=== PATIENT | female | born 1975 | race Caucasian/White ===

== ENCOUNTER → 2017-09-29 | Outpatient (CLI) | payer OTHER ==
[2017-09-29] MEDS: IOHEXOL 300 MG/ML 100ML VIAL. IV ×2 (09:38)
== END | disposition home or self-care (01) ==
LOC: CT 08:40
DX: J98.11 Atelectasis (principal)
CPT/HCPCS: 71275; Q9967

== ENCOUNTER → 2017-10-08 | Outpatient (CLI) | payer OTHER | END | disposition home or self-care (01) | LOC: NM 07:53 | DX: K30 Functional dyspepsia (principal); R11.0 Nausea | CPT/HCPCS: 78264; A9541 ==

== ENCOUNTER → 2018-05-30 | Outpatient (CLI) | payer OTHER ==
[2017-08-20 13:28] VITALS: BP 129/90
[~2018-05-30] MED LIST: AZEL137S3 NS; BREO ELLIPTA 21 EACH IH; CETI10TA22 PO; CLON1TAB4 PO; FLUT12AE IH; GLUC100018 PO; LAMO100T5 PO; LEVO137T2 PO; LEVO5TAB29 PO; MONT10TA9 PO; MULT1TAB52 PO; OMEP20CA9 PO; OXYC-323 PO; POLY17PO29 PO; PROAIR HFA8.5 GM INH; TOPI50TA38 PO; VORT20TA PO; XOPENEX HFA15 GM IH
--- NOTE | 2018-05-30 12:50 | RAD ---
HEPATOBILIARY SCAN WITH EJECTION FRACTION 05/30/2018 12:46 PM History: abd pain x 2 weeks
5.5mci 99mTc Choletec liquid meal for EF Procedure: Serial static images are obtained of the liver and biliary system in the frontal projection following IV administration of 5.5 mCi of Technetium 99m Choletec. After filling of the gallbladder, a fat-containing nutritional supplement was administered orally and imaging over the abdomen was continued. Findings: There is prompt hepatic clearance of tracer from the blood pool. There is homogeneous distribution throughout the liver. The gallbladder ejection fraction measures 98% IMPRESSION: 1. The cystic duct and common bile duct are patent. Negative for acute cholecystitis. 2. The gallbladder ejection fraction is within normal limits Electronically signed by: Alexandro Henriquez MD (05/30/2018 12:46 PM) [facility]
== END | disposition home or self-care (01) ==
LOC: NM 08:25
PROVIDERS: ATTEND Nurse Practitioner Family
DX: R10.84 Generalized abdominal pain (principal)
CPT/HCPCS: 78226; 96374; 96375; A9537

== ENCOUNTER → 2018-06-03 | Outpatient (CLI) | payer OTHER ==
[2017-08-20 13:28] VITALS: BP 129/90
[~2018-06-03] MED LIST changes: -AZEL137S3 NS; -BREO ELLIPTA 21 EACH IH; -CLON1TAB4 PO; +CONTRAST GIVEN. MC PRN; -GLUC100018 PO; +IOHEXOL 240 MG/ML 50ML VIAL. PO ONE; +IOHEXOL 300 MG/ML 100ML VIAL. IV ONE; -LAMO100T5 PO; -LEVO5TAB29 PO; -MULT1TAB52 PO; -OXYC-323 PO; -POLY17PO29 PO; -XOPENEX HFA15 GM IH
--- NOTE | 2018-06-03 16:04 | RAD ---
CT of the abdomen and pelvis with IV and oral contrast 06/03/2018 INDICATION: Abdominal pain COMPARISON STUDY: Hepatobiliary scan May 30, 2018. TECHNIQUE: Multidetector CT imaging of the abdomen and pelvis was obtained following the administration of IV and oral contrast. Findings: The partially visualized lung bases demonstrate no acute abnormality. The liver is unremarkable. The gallbladder is predominantly decompressed but otherwise unremarkable. The adrenal glands are unremarkable. The spleen is unremarkable. The pancreas is unremarkable. The kidneys are unremarkable. No evidence of hydronephrosis or obstructive uropathy is seen. There is no evidence of bowel obstruction no acute inflammatory changes of the bowels are identified. Evaluation of the large bowel somewhat limited due to lack of enteric contrast within. The appendix is visualized without evidence of acute inflammatory change. Prior hysterectomy noted immediately cephalad to the left ovary and immediately medial to the left external iliac artery is a cystic structure measuring 1.9 x 1.5 x 1.9 cm. This could be a small pelvic inclusion cyst or paraovarian cyst. Pelvic ultrasound may be helpful for further characterization if clinically indicated. There is a small opacity superior and anterior to the bladder which may represent a tiny bladder diverticulum. No acute osseous changes are seen. IMPRESSION: 1.No evidence of acute intra-abdominal abnormality. 2. 1.9 cm cystic structure cephalad to the left ovary possibly a paraovarian cyst or a pelvic inclusion cyst. Pelvic ultrasound may be helpful for further evaluation as clinically indicated. Three-month follow-up CT can be performed to ensure stability. CT DOSING PQRS STATEMENT: One or more of the following individualized dose reduction techniques were utilized for this examination: 1. Automated exposure control 2. Adjustment of the mA and/or kV according to patient size 3. Use of iterative reconstruction technique Electronically signed by: Alexandro Henriquez MD (06/03/2018 4:01 PM) [facility]
== END | disposition home or self-care (01) ==
LOC: CT 14:05
PROVIDERS: ATTEND Family Medicine
DX: R10.84 Generalized abdominal pain (principal)
CPT/HCPCS: 74177; Q9966; Q9967

== ENCOUNTER 2018-06-23 06:36 | Day surgery (SDC) | payer OTHER ==
[~2018-06-23] VITALS: Ht 167.6 cm; Wt 93.0 kg
[~2018-06-23 06:36] MED LIST changes: +AZEL137S3 NS; +BREO ELLIPTA 21 EACH IH; +CLON1TAB4 PO; -CONTRAST GIVEN. MC PRN; +GLUC100018 PO; -IOHEXOL 240 MG/ML 50ML VIAL. PO ONE; -IOHEXOL 300 MG/ML 100ML VIAL. IV ONE; +LAMO100T5 PO; +LEVO5TAB29 PO; +MULT1TAB52 PO; +POLY17PO29 PO; +XOPENEX HFA15 GM IH
[2018-06-23] MEDS ORDERED: BUPIVACAINE-EPI 0.5%-1:200000 50 ML VIAL. ONE (06:46)
[2018-06-23] MEDS ORDERED: IOHEXOL 300 MG/ML 100ML VIAL. ONE (06:46)
[2018-06-23] MEDS ORDERED: SURGICEL HEMOSTAT 4X8 EACH. ONE (06:46)
[2018-06-23] MEDS ORDERED: MORPHINE SULFATE 2 MG/ML VIAL. IV PRN (07:00)
[2018-06-23] MEDS ORDERED: fentaNYL PF VIAL 100 MCG/2 ML VIAL IV PRN (07:00)
[2018-06-23] MEDS ORDERED: PROCHLORPERAZINE 10 MG/2 ML VIAL. IV PRN (07:00)
[2018-06-23] MEDS ORDERED: ONDANSETRON PF 4 MG/2 ML VIAL. IV PRN (07:00)
[2018-06-23] MEDS ORDERED: LIDOCAINE 1% PF 2 ML VIAL. ID PRN (07:00)
[2018-06-23] MEDS ORDERED: HYDROmorphone 2 MG/ML VIAL IV PRN (07:00)
[2018-06-23] MEDS ORDERED: DEXAMETHASONE SOD PHOS 20 MG/5 ML VIAL. ONE (07:20)
[2018-06-23] MEDS ORDERED: PROPOFOL 20 ML IV ONE (07:20)
[2018-06-23] MEDS ORDERED: fentaNYL PF VIAL 100 MCG/2 ML VIAL ONE ×3 (07:20→09:09)
[2018-06-23] MEDS ORDERED: MIDAZOLAM HCL/PF 2 MG/2 ML VIAL. ONE (07:20)
[2018-06-23] MEDS ORDERED: ROCURONIUM 50 MG/5 ML VIAL. ONE (07:20)
[2018-06-23] MEDS ORDERED: ONDANSETRON PF 4 MG/2 ML VIAL. ONE (07:20)
[2018-06-23] MEDS ORDERED: FAMOTIDINE 20 MG/2 ML VIAL ONE (07:20)
[2018-06-23] MEDS ORDERED: LIDOCAINE 2% PF Vial for OR 5 ML VIAL. ONE (07:20)
[2018-06-23] MEDS ORDERED: SUCCINYLCHOLINE 200 MG/10 ML VIAL. ONE (07:23)
[2018-06-23] MEDS: IV RINGERS,LACTATED 1000ML 1,000 ML IV SCH ×2 (07:28→07:38)
[2018-06-23] MEDS ORDERED: GLYCOPYRROLATE 1 MG/5 ML VIAL. ONE (08:17)
[2018-06-23] MEDS ORDERED: NEOSTIGMINE METHYLSULFATE 5 MG/5 ML SYRINGE. ONE (08:17)
[2018-06-23] MEDS ORDERED: SEVOFLURANE 31 TO 60 MINUTES. IH ONE (08:37)
--- NOTE | 2018-06-23 08:45 | PDOC4 ---
Operative Note Operative Note Date: 06/23/2018 Preoperative diagnosis: Biliary dyskinesia Postoperative diagnosis: Same Procedure: Laparoscopic cholecystectomy Surgeon: Brent Specimen: Gallbladder Dictation: Patient is 42-year-old female who has right upper quadrant abdominal pain postprandial nausea ultrasound showed no gallstones but sludge within the gallbladder HIDA scan showed ejection fraction 98% but with recurrent pain on Kinevac injection. Procedure of laparoscopic cholecystectomy was explained to the patient detail was benefits were also discussed including bleeding infection injury to intra-abdominal contents possibly necessitating further or open operations alternatives to this procedure also discussed with patient seemed understanding gave both verbal and written consent had procedure performed. Patient was taken to the operating room placed in supine position general anesthesia was initiated once patient was asleep and intubated her abdomen was prepped and draped in usual sterile fashion using ChloraPrep. An area just below the umbilicus was injected with quarter percent Marcaine with epinephrine incision was made lead blade scalpel varies needle was placed within the abdomen creating pneumoperitoneum once this complete a 11 mm port was placed and a 5 mm camera was placed within the abdomen which was inspected no other problems were noted. A 5 mm port was placed in the epigastrium and another 5mm Port was placed in the right lateral abdomen and another 5 mm port was placed in the right mid abdomen. The dome of the gallbladder's grasped retracted cephalad the infundibulum of the gallbladder's tract laterally exposing the triangle adherent tissues the triangle are taken down with blunt dissection exposing the cystic duct and cystic artery both were doubly clipped and transected the gallbladder was taken off the liver with hook left cautery placed in Endo Catch bag and removed from the umbilicus. Right upper quadrant was irrigated and suctioned dry hemostasis deemed appropriate and the pneumoperitoneum was reduced all ports removed fascial defect at the umbilicus closed [id number] 0 Vicryl suture and skin was approximated all port sites 4 septic or Monocryl Mastisol Steri-Strips and island dressings were applied. Patient was waken expanded in the operating room taken recovery in stable condition all sponge instrument needle counts listed as correct estimate blood loss 5 mL KENY DINH MD Jun 23, 2018 08:45
[2018-06-23] MEDS ORDERED: OXYC-323 PO (08:57)
[2018-06-23] MEDS ORDERED: SCOPOLAMINE 1.5MG PATCH. TD ONE (09:00)
[2018-06-23] MEDS: fentaNYL PF VIAL 100 MCG/2 ML VIAL IV PRN ×2 (09:16→09:51)
[2018-06-23] MEDS ORDERED: oxyCODONE/APAP 5/325 1 TAB TABLET PO ONE (10:00)
[2018-06-23] MEDS ORDERED: oxyCODONE/APAP 5/325 1 TAB TABLET PO PRN (10:00)
[2018-06-23 10:25] VITALS: BP 126/74
--- NOTE | 2018-06-24 17:10 | PATHOLOGY ---
[facility] Accession Number: [id number] . 01 Material submitted: . GALLBLADDER . 01 Clinical history: . Biliary dyskinesia. . 02 Diagnosis: Gallbladder, cholecystectomy: - Chronic cholecystitis, mild. - Tiny cystic duct lymph node with no pathologic diagnosis. - No gallstones present. (SK:[facility]; 06/24/2018) QMS/06/24/2018 . 02 Electronically signed: . Ezequiel Barreto MD, Pathologist NPI- [id number] . 01 Gross description: . Received in formalin labeled "John, Erika, gallbladder" is an intact cholecystectomy specimen which measures 7.1 x 3.3 x 2.4 cm. The external surface is pink-mora and smooth and the specimen is opened to reveal yellow-green velvety mucosa and an average wall thickness of 0.2 cm. No polyps or masses are identified. No calculi are grossly identified. Jet Piercer Operator sections of the fundus and body and the cystic duct margin are submitted in cassette A1. ([facility] [place]; 06/23/2018) SYC/SYC . 02 Pathologist provided ICD-10: K81.1 . 02 CPT . 899289 Specimen Comment: A courtesy copy of this report has been sent to Specimen Comment: [phone], . Specimen Comment: Report sent to / DR LUU Specimen Comment: A duplicate report has been generated due to demographic updates. Performed at: 01 [facility] [address], [place] [id number] MD Julio Cesar Lunsford MD Phone: [phone] Performed at: 02 [facility] [id number] MD Casper Mg MD Phone: [phone]
== END 2018-06-23 10:25 | disposition home or self-care (01) ==
LOC: SURG 06:36
PROVIDERS: ATTEND Surgery
DX: K81.1 Chronic cholecystitis (principal); E78.5 Hyperlipidemia, unspecified; F41.9 Anxiety disorder, unspecified; E89.0 Postprocedural hypothyroidism; Z79.899 Other long term (current) drug therapy; Z90.710 Acquired absence of both cervix and uterus; Z98.890 Other specified postprocedural states; Z82.49 Family history of ischemic heart disease and other diseases of the circulatory system; Z83.6 Family history of other diseases of the respiratory system; Z72.89 Other problems related to lifestyle
CPT/HCPCS: 47562; 88304; A7015; J0330; J0690; J1100; J2001; J2250; J2405; J2704; J2710; J3010; J3490; J7030; J7120; Q9967

== ENCOUNTER → 2018-09-02 | Outpatient (CLI) | payer OTHER ==
[~2018-09-02] MED LIST changes: +ALBU2.5V8 INH; +CLON1TAB11 PO; -CLON1TAB4 PO; +MONT10TA49 PO; -MONT10TA9 PO; +OMEP20CA10 PO; -OMEP20CA9 PO; +OXYC1TAB15 PO; -PROAIR HFA8.5 GM INH
--- NOTE | 2018-09-02 14:02 | KCIC ---
EXAM: Pelvic sonogram. HISTORY: Right ovarian cyst on CT. TECHNIQUE: Transabdominal and transvaginal sonographic imaging of the pelvis was performed. COMPARISON: CT dated 06/03/2018. FINDINGS: The uterus is surgically absent. The right ovary measures 2.1 x 2.0 x 3.2 cm. The left ovary measures 2.0 x 1.4 x 2.7 cm. There is a complex exophytic left ovarian cyst or paraovarian cyst measuring 2.0 cm. There are multiple ovarian calcifications. There is normal blood flow within both ovaries. There is no pelvic free fluid. IMPRESSION: 1. 2.0 cm complex exophytic left ovarian cyst or paraovarian cyst. This is stable compared to the prior CT, allowing for differences in imaging modality. 2. Nonspecific bilateral ovarian calcifications. 3. Surgically absent uterus. Electronically signed by: Eleanor Alejo MD (09/02/2018 1:58 PM) [facility]
== END | disposition home or self-care (01) ==
LOC: KCIC US 12:20
PROVIDERS: ATTEND Specialist
DX: D27.1 Benign neoplasm of left ovary (principal); N83.8 Other noninflammatory disorders of ovary, fallopian tube and broad ligament; Z90.710 Acquired absence of both cervix and uterus
CPT/HCPCS: 76830; 76856